=== PATIENT | male | born 1995 | race Caucasian/White ===

== ENCOUNTER 2022-02-26 15:05 | Inpatient (IN) ==
[2022-02-26] MEDS ORDERED: KETOROLAC TROMETHAMINE 15 MG/ML VIAL IV ONE (15:17)
[2022-02-26] MEDS ORDERED: FAMOTIDINE 20MG IV PUSH 20 MG/5 ML SYR IV STA (15:17)
[2022-02-26] MEDS ORDERED: GI COCKTAIL ED USE PO ONE (15:17)
[2022-02-26] MEDS ORDERED: ONDANSETRON INJ 2 MG/ML 2 ML VIAL IV STA (15:17)
[2022-02-26] MEDS ORDERED: SODIUM CHLORIDE 0.9% 1000ML 1,000 ML IV STA (15:17)
[2022-02-26] MEDS ORDERED: SODIUM CHLORIDE 0.9% 1000ML 2,000 ML IV ONE (15:20)
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
[2022-02-26 15:41] LABS: Basophils # (auto) 0.06 K/uL (0-0.2); Basophils % (auto) 0.5 %; Eosinophils # (auto) 0.03 K/uL (0-0.5); Eosinophils % (auto) 0.2 %; Hematocrit (blood only) 46.9 % (42-52); Hemoglobin 16.2 g/dL (14.0-18.0); Immature Granulocytes # (auto) 0.05 K/uL (0.00-0.02); Immature Granulocytes % (auto) 0.4 %; Lymphocytes # (auto) 2.35 K/uL (1.2-3.4); Lymphocytes % (auto) 18.4 %; Mean Corpuscular Hemoglobin 30.3 pg (25-34); Mean Corpuscular Hgb Conc 34.5 g/dL (32-36); Mean Corpuscular Volume 87.7 fL (80-100); Mean Platelet Volume 11.1 fL (7.4-10.4); Monocytes # (auto) 0.66 K/uL (0.11-0.59); Monocytes % (auto) 5.2 %; Neutrophils # (auto) 9.62 K/uL (1.4-6.5); Neutrophils % (auto) 75.3 %; Platelet Count 309 K/uL (130-400); RDW Coefficient of Variation 12.6 % (11.5-14.5); RDW Standard Deviation 40.5 fL (36.4-46.3); Red Blood Count 5.35 M/uL (4.7-6.1); White Blood Count 12.77 K/uL (4.8-10.8)
--- NOTE | 2022-02-26 15:44 | XRay Report ---
XR chest 1V portable CLINICAL HISTORY: Atypical chest pain TECHNIQUE: Single frontal radiograph of the chest was obtained. Comparison: Comparison is made to chest radiograph 04/16/2018 FINDINGS: No lines and tubes are seen. The cardiomediastinal silhouette is normal. The lungs are clear. No evid ence of pleural effusion or pneumothorax. IMPRESSION: No acute chest disease. ACT 112: Negative or not required by law. Electronically signed by: Kirill Garcia M.D. 02/26/2022 3:43 PM
[2022-02-26 16:27] LABS: Troponin I High Sensitivity 5.3 pg/ml (0-20)
[2022-02-26 16:37] LABS: Alanine Aminotransferase 20 U/L (7-52); Albumin Globulin Ratio 1.6 (0.9-2); Alkaline Phosphatase 105 U/L (34-104); Anion Gap 26 (3-11); Aspartate Aminotransferase 27 U/L (13-39); BUN Creatinine Ratio 18.1 (10-20); Bilirubin,Total 1.8 mg/dl (0.2-1.0); Blood Urea Nitrogen 19 mg/dl (6-23); Calcium 10.2 mg/dl (8.5-10.1); Carbon Dioxide 15 mmol/L (21-32); Chloride 95 mmol/L (98-107); Est GFR (African American) 114.6 ml/min; Est GFR (Non-African American) 98.9 ml/min; Globulin 3.2 gm/dl (2.5-4.0); Glucose 455 mg/dl (70-99(Fasting)); Lipase 13 U/L (11-82); Potassium 4.3 mmol/L (3.5-5.1); Sodium 136 mmol/L (136-145); Total Protein 8.2 gm/dl (6.0-8.3)
[2022-02-26] MEDS ORDERED: DEXTROSE 50% 50 ML SYRINGE IV PRN (16:42)
[2022-02-26] MEDS ORDERED: GLUCAGON FOR INJ 1 MG VIAL SQ PRN (16:42)
[2022-02-26] MEDS ORDERED: GLUCOSE 40% GEL 15 GM TUBE PO PRN (16:42)
[2022-02-26] MEDS ORDERED: CARBOHYDRATES FOR HYPOGLYCEMIA PO PRN (16:42)
[2022-02-26] MEDS ORDERED: DKA GOAL RANGE 150-250 mg/dl ONE (16:42)
[2022-02-26] MEDS ORDERED: GLUCOSE 10 TABS/TUBE PO PRN (16:42)
[2022-02-26] MEDS ORDERED: STAT INSULIN DRIP STA (16:42)
[2022-02-26] MEDS ORDERED: NORMOSOL-R 2,000 ML IV ONE (16:45)
[2022-02-26] MEDS ORDERED: INSULIN REGULAR 250 UNITS in SODIUM CHLORIDE 0.9% 247.5 ML IV SCH (16:45)
[2022-02-26] MEDS ORDERED: NovoLIN-R BOLUS FROM BAG IV ONE (17:00)
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
[2022-02-26 17:23] LABS: Base Excess VBG -11.7 mEq/L; Oxygen Saturation VBG 86.6 %; pH VBG 7.29 (7.36-7.41)
[2022-02-26] MEDS ORDERED: STAT IV Infusion **Titration per Protocol STA (18:01)
[2022-02-26] MEDS ORDERED: ONDANSETRON INJ 2 MG/ML 2 ML VIAL IV PRN (20:19)
[2022-02-26] MEDS ORDERED: ACETAMINOPHEN 1,000 MG/100 ML VIAL IV PRN (20:19)
[2022-02-26] MEDS ORDERED: ALUMINUM/MAGNESIUM SUSP 30 ML UDC PO PRN (20:19)
[2022-02-26] MEDS ORDERED: PHARMACY GLYCEMIC MGMT CONSULT PRN (20:19)
[2022-02-26] MEDS ORDERED: MAGNESIUM HYDROXIDE SUSP 30 ML UDC PO PRN (20:19)
[2022-02-26] MEDS ORDERED: Patient's HEIGHT &/or WEIGHT Needed SCH (20:30)
[2022-02-26] MEDS ORDERED: NSS + 20MEQ KCL 20 MEQ/1,000 ML BAG IV SCH (20:30)
[2022-02-26 21:49] LABS: Anion Gap 12 (3-11); BUN Creatinine Ratio 19.4 (10-20); Blood Urea Nitrogen 18 mg/dl (6-23); Calcium 8.3 mg/dl (8.5-10.1); Carbon Dioxide 18 mmol/L (21-32); Chloride 108 mmol/L (98-107); Est GFR (African American) 132.7 ml/min; Est GFR (Non-African American) 114.5 ml/min; Glucose 182 mg/dl (70-99(Fasting)); Magnesium 2.1 mg/dl (1.7-2.4); Phosphorus 2.1 mg/dl (2.5-4.9); Potassium 4.1 mmol/L (3.5-5.1); Sodium 138 mmol/L (136-145)
[2022-02-26] MEDS: D5W AND 1/2NSS + 20MEQ KCL 20 MEQ/1,000 ML BAG IV SCH (21:55)
[2022-02-26] MEDS: INSULIN ASPART PER UNIT SC SCH (22:08)
[2022-02-27 00:53] LABS: BUN Creatinine Ratio 19.1 (10-20); Calcium 8.3 mg/dl (8.5-10.1); Creatinine Clr Calc Pharmacy 113.3 ml/min; Magnesium 2.1 mg/dl (1.7-2.4); Phosphorus 2.2 mg/dl (2.5-4.9); Potassium 3.9 mmol/L (3.5-5.1)
[2022-02-27 05:16] LABS: BUN Creatinine Ratio 17.5 (10-20); Calcium 8.1 mg/dl (8.5-10.1); Creatinine Clr Calc Pharmacy 109.8 ml/min; Est GFR (African American) 126.1 ml/min; Est GFR (Non-African American) 108.8 ml/min; Phosphorus 3.5 mg/dl (2.5-4.9)
[2022-02-27] MEDS: D5W AND 1/2NSS + 20MEQ KCL 20 MEQ/1,000 ML BAG IV SCH ×2 (05:58→13:20)
[2022-02-27] MEDS: INSULIN ASPART PER UNIT SC SCH ×3 (07:26→18:35)
[2022-02-27 07:48] LABS: Estimated Average Glucose 243 mg/dl; Hemoglobin A1C 10.1 % (4.5-5.6)
--- NOTE | 2022-02-27 08:23 | Electrocardiogram Report ---
Test Reason : Blood Pressure : / mmHG Vent. Rate : 106 BPM Atrial Rate : 106 BPM P-R Int : 138 ms QRS Dur : 098 ms QT Int : 344 ms P-R-T Axes : 067 086 043 degrees QTc Int : 456 ms Sinus tachycardia Left atrial enlargement Borderline ECG When compared with ECG of 16-APR-2018 18:10, Nonspecific T wave abnormality, improved in Inferior leads Confirmed by Chepe Colon ([id number]) on 02/27/2022 8:23:14 AM Referred By: REFERRED SELF Confirmed By:Chepe Colon
[2022-02-27] MEDS: ENOXAPARIN INJ 40 MG/0.4 ML SYR SQ SCH (08:30)
[2022-02-27 10:12] LABS: BUN Creatinine Ratio 18.7 (10-20); Calcium 8.4 mg/dl (8.5-10.1); Est GFR (African American) 136.2 ml/min; Est GFR (Non-African American) 117.5 ml/min; Magnesium 2.2 mg/dl (1.7-2.4); Phosphorus 2.2 mg/dl (2.5-4.9); Potassium 3.5 mmol/L (3.5-5.1)
[2022-02-27 13:16] LABS: BUN Creatinine Ratio 17.3 (10-20); Calcium 8.6 mg/dl (8.5-10.1); Creatinine Clr Calc Pharmacy 108.7 ml/min; Est GFR (African American) 124.6 ml/min; Est GFR (Non-African American) 107.5 ml/min; Potassium 4.1 mmol/L (3.5-5.1)
--- NOTE | 2022-02-27 15:04 | Pharmacy Report ---
Pharmacy Glycemic Short Note 2 - Date of Service February 27, 2022 - Glycemic Short BSG Results (Last 24 hours): 02/26/22 02/26/22 02/26/22 15:15 18:27 19:29 Glucose 455 H* POC Glucose 269 H 244 H 02/26/22 02/26/22 02/26/22 20:43 21:20 21:27 Glucose 182 H POC Glucose 207 H 183 H 02/26/22 02/26/22 02/27/22 22:25 23:33 00:20 Glucose 146 H POC Glucose 160 H 141 H 02/27/22 02/27/22 02/27/22 01:33 03:30 04:19 Glucose 221 H POC Glucose 113 H 184 H 02/27/22 02/27/22 02/27/22 05:31 08:28 09:26 Glucose 112 H POC Glucose 199 H 86 02/27/22 02/27/22 02/27/22 09:44 09:50 10:07 Glucose POC Glucose 66 L* 70 240 H 02/27/22 02/27/22 02/27/22 11:11 12:17 12:19 Glucose POC Glucose 275 H 331 H* 324 H* 02/27/22 02/27/22 02/27/22 12:22 13:13 13:15 Glucose 352 H* POC Glucose 332 H* 322 H* 02/27/22 14:15 Glucose POC Glucose 269 H OUTPATIENT ANTIDIABETIC REGIMEN: * Humalog Omnipod (insulin pump) * Basal: 1.1 units/hr x24hr (26.4 units/day) * Correction factor: 35 mg/dL/unit * Carb ratio: 1 unit per 9gm CHO * HbA1c: 10.1% (02/26/22) ASSESSMENT: * Mr Donato is a 26yo diabetic M admitted with epigastric pain, elevated BSGs in the setting of N/V/dehydration following an episode of heavy alcohol use. * Pt was started on an IV insulin infusion for DKA in the ER. Labs have resolved today, but patient continue to require a rather high insulin gtt rate. * Dextrose removed from IVF this afternoon now that pt is ordered a diet. This should help to lower the insulin gtt rate. * Pt does not currently have insulin pump supplies with him, but reports to CDE that a family member can bring to him this evening during visiting hours. * Would recommend continuing insulin gtt until pump may be resumed. PLAN FOR INPATIENT GLYCEMIC CONTROL: * Continue IV insulin infusion. * Transition to pt own insulin pump when supplies available. * Pt is to manage BSGs with insulin pump per outpatient settings. * RN will have patient read and sign agreement [id number] Insulin Pump Therapy Patient Agreement. * RN will provide and explain form [id number] Flowsheet for Patient * Patient will document their insulin dose given on [id number] which is kept at the bedside, available to caregivers upon request, and which becomes part of the permanent medical record. * If at any time the patients condition evidences that he is not able to manage the insulin pump (i.e. frequent hypo/hyperglycemia) Pharmacy will assume glycemic control by discontinuing the pump & managing with SQ basal bolus insulin regimen for the interim. * Can likely d/c insulin infusion ~2 hours after insulin pump has been connected and infusing.
[2022-02-27] MEDS: SODIUM CHLOR 0.45% + 20MEQ KCL 20 MEQ/1,000 ML BAG IV SCH ×2 (15:26→23:12)
[2022-02-27] MEDS ORDERED: SODIUM PHOSPHATE 3 MMOL/1 ML INFUSION IV STA (16:07)
--- NOTE | 2022-02-27 16:13 | Hospitalist Progress Note ---
Date of Service February 27, 2022 Assessment & Plan (1) DKA (diabetic ketoacidosis): Plan: #. DKA/ T1DM #. Nausea and vomiting #. Alcohol abuse Patient presents 02/26 secondary to nausea and vomiting and was found to have high anion gap metabolic acidosis in the ED alcohol abuse Patient had been alcohol drinking the night prior. DKA likely 2/2 poor PO intake, dehydration and vomiting in the setting of heavy alcohol use overnight. Patient completing DKA protocol, anion gap closed and diet started, denies N/V/abd pain, plan is to switch insulin drip to patient's own insulin pump. continue to monitor #. DVT prophylaxis: Lovenox #. Full code #. Dispo: Likely in next 1 to 2 days. Admission and Anticipated Discharge Date Admission Date: February 26, 2022 Subjective Patient seen and examined at bedside as a follow-up of DKA. Patient was sitting up in bed, on room air, NAD, no new acute events overnight. Patient denies any nausea, vomiting, abdominal pain. Patient reports eating okay today morning. Patient denies any headache/dizziness/chest pain/palpitations/belly pain/other review of symptoms. Physical Exam Physical Exam: GENERAL: Alert and oriented x3. NAD, on RA. HEENT: No pallor, no icterus. Pupils equal, round and reactive to light. Oral mucosa moist. NECK: No JVD, no neck masses. HEART: S1 and S2 heard. Regular rate and rhythm. No murmur, no gallop. RESPIRATORY SYSTEM: Normal AP diameter. No accessory muscle use. No wheezing, no crackles. ABDOMEN: Soft, bowel sounds present, nontender, no distention. CENTRAL NERVOUS SYSTEM: No facial droop. Speech is clear. Obeys simple commands. Moves extremities. EXTREMITIES: No edema, no erythema seen. Results & Data Results & Data ([facility]) Vital Signs (Past 12 Hours) Vital Signs Temp Pulse Pulse Resp BP Pulse Ox 02/27/22 15:40 36.8 C 93 H 19 127/75 96 02/27/22 11:30 75 02/27/22 08:31 36.6 C 76 18 108/62 97 (1) DKA (diabetic ketoacidosis) Diabetes mellitus complication detail: without coma Diabetes mellitus type: other specified (including JASPER) Qualified Code(s): E13.10 - Other specified diabetes mellitus with ketoacidosis without coma
[2022-02-27] MEDS ORDERED: SODIUM PHOSPHATE 15 MMOL in SODIUM CHLORIDE 0.9% 250 ML IV ONE (16:30)
[2022-02-27] MEDS ORDERED: INSULIN HUMAN LISPRO (humaLOG) 100 UNITS/ML VIAL SC PRN (16:30)
[2022-02-27 16:53] LABS: BUN Creatinine Ratio 18.9 (10-20); Calcium 8.4 mg/dl (8.5-10.1); Creatinine Clr Calc Pharmacy 100.5 ml/min; Est GFR (African American) 113.3 ml/min; Est GFR (Non-African American) 97.8 ml/min; Magnesium 1.9 mg/dl (1.7-2.4); Phosphorus 1.8 mg/dl (2.5-4.9)
[2022-02-27 23:43] LABS: Appearance Urine Clear (Clear); Bacteria Urine Automated Negative (Negative); Bilirubin Urine Negative (Negative); Blood Urine Negative (Negative); Color Urine Yellow; Glucose Urine UA 1+ (Negative); Ketones Urine Negative (Negative); Leukocyte Esterase Urine Trace (Negative); Nitrite Urine Negative (Negative); Protein Urine Negative (Negative); RBC Urine Automated 0-4 /hpf (0-4); Specific Gravity Urine 1.013 (1.000-1.030); Urobilinogen Urine Negative (Negative); pH Urine 5.5 (4.5-7.5)
[2022-02-28] MEDS: SODIUM CHLOR 0.45% + 20MEQ KCL 20 MEQ/1,000 ML BAG IV SCH ×2 (07:23→14:52)
[2022-02-28 07:34] LABS: Hematocrit (blood only) 37.9 % (42-52); Hemoglobin 12.8 g/dL (14.0-18.0); Mean Corpuscular Hemoglobin 29.4 pg (25-34); Mean Corpuscular Hgb Conc 33.8 g/dL (32-36); Mean Corpuscular Volume 87.1 fL (80-100); Mean Platelet Volume 9.9 fL (7.4-10.4); Platelet Count 217 K/uL (130-400); RDW Coefficient of Variation 12.6 % (11.5-14.5); RDW Standard Deviation 40.7 fL (36.4-46.3); Red Blood Count 4.35 M/uL (4.7-6.1); White Blood Count 7.72 K/uL (4.8-10.8)
[2022-02-28 08:29] LABS: Potassium 3.7 mmol/L (3.5-5.1)
[2022-02-28 08:30] LABS: BUN Creatinine Ratio 11.1 (10-20); Calcium 8.2 mg/dl (8.5-10.1); Creatinine Clr Calc Pharmacy 131.5 ml/min; Est GFR (African American) 144.2 ml/min; Est GFR (Non-African American) 124.4 ml/min; Magnesium 1.7 mg/dl (1.7-2.4); Phosphorus 3.1 mg/dl (2.5-4.9)
[2022-02-28] MEDS: ENOXAPARIN INJ 40 MG/0.4 ML SYR SQ SCH (08:30)
[2022-02-28] MEDS ORDERED: MAGNESIUM SULFATE / D5W 1 GM/100 ML BAG IV ONE (09:38)
--- NOTE | 2022-02-28 15:03 | Discharge Summary ---
Date of Service February 28, 2022 Admission HPI Per Admitting Provider 26 yo insulin dependent diabetic presented after an evening of binge drinking alcohol, specifically half a bottle of [employer] Vodka along with 4 shots of something else he cannot remember, presenting with issues keeping down food and water. Nausea and vomiting have persisted since this morning there is a high anion gap metabolic acidosis on lab workup. He is describing generalized abdominal pain radiating up into his chest with a burning sensation. This began as an intermittent heartburn sensation this morning. He does use an insulin pump with a roughly 26 Unit/day running basal. He reported a 12:1 carb ratio t hat he plugs in for snacks and food boluses typically. He reports compliance with this for the most part but is not aware of his recent A1C. He has a PCP who manages him, and doesn't see an disposal man. This was suspended in the ER and he was given a 7 unit insulin bolus with a drip. He was given two liters of NSS followed by normosol. He was also given Zofran 4mg IV, Toradol 10mg IV, GI cocktail x 1 dose, Pepcid 20mg IV. He still reports feeling bad and explains that he is very tired, not having slept much overnight. ROS reveals difficulty walking and moving his arms which on physical exam is consistent with a decreased sensation in the left arm to the level of the shoulder, and numbness in his left foot and lower leg until the level of the knee. This numbness is new as of today and there are no other gross focal neurologic deficits. He also reports intermittent SOB today reporting this as a possible side effect of anxiety given the new development of symptoms. Father is at bedside. Admission Exam Per Admitting Provider CONSTITUTIONAL: WNWD, vitals as above, generally NAD EYES: pupils are round and equal bilaterally, normal conjunctivae, no scleral icterus ENT: external ear and nose normal, MMM NECK: trachea midline RESPIRATORY: clear to auscultation bilaterally, no crackles, rales or wheezes, normal respiratory effort CARDIOVASCULAR: regular rate and rhythm, S1 and 2 heard without murmurs, gallops or rubs, no JVD, no peripheral edema CHEST: inspection of chest was normal GASTROINTESTINAL: soft, generalized tenderness without distension MUSCULOSKELETAL: strength 5/5 throughout, head is normocephalic and atraumatic, neck supple, normal palpation of chest wall without tenderness SKIN: warm and dry, NEUROLOGIC: CN 2-12 grossly intact, +sensory deficit in left arm to left shoulder as compared to right arm, also numbness reported in left foot and leg to level of left knee, normal cognition, normal speech, no tremor, gait not assessed as patient not feeling well. No other gross focal neurologic deficits. PSYCHIATRIC: alert cooperative and oriented to person, place and time. Euthymic mood, makes good eye contact, language grossly intact, recent and remote memory grossly intact. Principal Diagnosis DKA/TI DM Binge alcohol drinking Discharge Exam GENERAL: Alert and oriented x3. NAD, on RA. HEENT: No pallor, no icterus. Pupils equal, round and reactive to light. Oral mucosa moist. NECK: No JVD, no neck masses. HEART: S1 and S2 heard. Regular rate and rhythm. No murmur, no gallop. RESPIRATORY SYSTEM: Normal AP diameter. No accessory muscle use. No wheezing, no crackles. ABDOMEN: Soft, bowel sounds present, nontender, no distention. CENTRAL NERVOUS SYSTEM: No facial droop. Speech is clear. Obeys simple commands. Moves extremities. EXTREMITIES: No edema, no erythema seen. Discharge Data Allergies Allergy/AdvReac Type Severity Reaction Status Date / Time atorvastatin [From Lipitor] AdvReac Unknown muscle pain Verified 02/26/22 18:49 Consultations 02/26/22 16:47 ED Decision to Admit Stat Diabetes Follow up Diabetes Follow-up Needed for HgbA1c >9% Hospital Course (1) DKA (diabetic ketoacidosis): #. DKA/ T1DM #. Nausea and vomiting #. Alcohol abuse, binge drinking Patient presents 02/26 secondary to nausea and vomiting and was found to have high anion gap metabolic acidosis in the ED alcohol abuse Patient had been alcohol drinking the night prior. DKA likely 2/2 poor PO intake, dehydration and vomiting in the setting of heavy alcohol use overnight. S/p DKA protocol, tolerating diet, denies N/V/abd pain, back to patient's own insulin pump. Pt seen by clinical unit educator. Counselled extensively on how the management of diabetes looks in medical terminologist and how we can incorporate healthy eating habits and lifestyle changes in our regular work schedule. Pt advised to f/u with diabetic clinic closely as OP for better control of his diabetes. Pt counselled against binge drinking. #. DVT prophylaxis: Lovenox #. Full code #. Dispo: Likely in next 1 to 2 days. Patient being discharged to home with following instruction at the point of discharge: Follow-up with your primary care physician within a week time. Advise to establish and follow-up with diabetic clinic for close monitoring of your diabetes. Recommend to stick with dietary instruction as per discussion with clinical unit educator while inpatient. Recommend against alcohol consumption. Incorporate healthy and balanced lifestyle as part of long-term management of her diabetes. Take your medications as prescribed. Total Time Total Time Spent Total Time Spent (In Minutes): 35 Discharge Plan Discharge Items Patient Disposition: Home - Self-Care Reason For Visit: DKA Discharge Diagnosis: DKA/TI DM Binge alcohol drinking Activity: Resume your previous activity Non-emergency contact: Primary Care Provider Call non-emergency contact if: you have any medication questions, your symptoms worsen and your temperature is above 101 Follow-up/Referrals: Paramjit Baez MD [Primary Care Provider] - Diet: Carb Count or DM1 Addtl Attending Provider Instructions: Follow-up with your primary care physician within a week time. Advise to establish and follow-up with diabetic clinic for close monitoring of your diabetes. Recommend to stick with dietary instruction as per discussion with clinical unit educator while inpatient. Recommend against alcohol consumption. Incorporate healthy and balanced lifestyle as part of long-term management of her diabetes. Take your medications as prescribed. Pending Studies at Discharge: No Stand-Alone Forms: [employer], Smoking Cessation Medications and DC Order Prescriptions: Continued insulin lispro [Humalog U-100 Insulin] 100 unit/mL solution 0 unit continuous subcutaneous infusion CONT RF: 0 Discharge Orders: Discharge Order (Routine); Ordered 02/28/22 Ordered By: Ancelmo Pena/Other Patient Handouts: Managing Type 1 Diabetes, Diabetes: Sick-Day Plan, Diabetic Ketoacidosis Admission Data Admit Date/Time: 02/26/22 16:55 Attending Provider: Ancelmo Ruvalcaba Admit Provider: Blanca Dodson Primary Care Provider: Paramjit Baez Other Providers: Blanca Dodson
== END 2022-02-28 17:31 | disposition home or self-care (01) | DRG 639 ==
LOC: ED 15:05 → 2S 16:55 → SUATTDRO 16:55 → 2S 19:28